=== PATIENT | male | born 1980 ===

== ENCOUNTER 2018-10-06 22:03 | Inpatient (IN) | payer OTHER ==
[2018-10-06 22:04] VITALS: BMI 27.8
--- NOTE | 2018-10-06 22:53 | ED PDOC ---
Lower Extremity Pain/Injury Time Seen by Provider: 10/06/18 22:27 Chief Complaint (Nursing): Lower Extremity Problem/Injury Chief Complaint (Provider): Left ankle pain History Per: Patient History/Exam Limitations: no limitations Additional Complaint(s): 38 y/o M with no significant PMH who presents with Left ankle pain. Pt states that he was playing soccer when he kicked the ball and turned and heard a pop then felt a kick in the back of his leg. He has not been able to walk on it since. Denies taking any pain meds since event. No numbness or tingling. Past Medical History Reviewed: Historical Data, Nursing Documentation, Vital Signs Vital Signs: Last Vital Signs Temp 98.9 F 10/06/18 22:04 Pulse 116 H 10/06/18 22:04 Resp 18 10/06/18 22:04 BP 135/76 10/06/18 22:04 Pulse Ox 95 10/06/18 22:04 Primary Care Provider: Procedure,Nonphys - Medical History PMH: No Chronic Diseases - Surgical History Surgical History: Tonsillectomy - Family History Family History: States: Unknown Family Hx - Immunization History Hx Tetanus Toxoid Vaccination: No Hx Influenza Vaccination: No Hx Pneumococcal Vaccination: No - Home Medications Home Medications: Ambulatory Orders Medication Instructions Recorded Ibuprofen [Motrin Tab] 800 mg PO Q6 PRN 7 Days tab 10/06/18 - Allergies Allergies/Adverse Reactions: Allergies Allergy/AdvReac Type Severity Reaction Status Date / Time No Known Allergies Allergy Verified 10/06/18 22:04 Review of Systems Musculoskeletal: Positive for: Foot Pain (ankle pain) Physical Exam - Reviewed Nursing Documentation Reviewed: Yes Vital Signs Reviewed: Yes - Physical Exam Appears: Positive for: Uncomfortable Skin: Positive for: Normal Color Extremity: Positive for: Capillary Refill (< 2 sec), Other (Left posterior ankle soft, + tenderness on palpation of posterior ankle. No ecchymosis, erythema. Mild edema. ). Negative for: Normal ROM (Decreased ROM with flexion/extension of Left ankle. Normal ROM with flexion and extension of left knee and toes. ), Calf Tenderness, Deformity Neurological/Psych: Positive for: Awake, Alert, Oriented - Laboratory Results Result Diagrams: 10/06/18 23:27 10/06/18 23:27 - ECG O2 Sat by Pulse Oximetry: 95 Medical Decision Making Medical Decision Making: CBC, CMP, PT/PTT/INR, Type and screen ordered. Toradol 30mg IV x 1 Left ankle x-ray Podiatry consult Left ankle x-ray read by me: no acute fracture. 23:35: Podiatry at bedside, placed posterior splint in plantar flexed position. 00:05: Pt to be admitted for surgery tomorrow with Dr. Marte. Case discussed with Dr. Rodriguez who accepts admission and care transferred at this time. Pre-op CXR and EKG ordered. EKG: sinus, HR 74, normal ECG. CXR read by me: no acute abnormality. Disposition - Clinical Impression Clinical Impression: Achilles tendon rupture - Patient ED Disposition Is Patient to be Admitted: Yes Counseled Patient/Family Regarding: Studies Performed, Diagnosis, Need For Followup, Rx Given - Disposition Disposition: Transfer of Care Disposition Time: 00:05 Condition: STABLE
[2018-10-06 23:31] LABS: BASO # 0.1 K/uL (0.0-0.2); BASO % 0.6 % (0.0-2.0); EOS # 0.1 K/uL (0.0-0.7); EOS % 0.5 % (0.0-4.0); HEMOGLOBIN 15.7 g/dL (12.0-18.0); LYMPH # 1.9 K/uL (1.0-4.3); LYMPH % 13.4 % (20.0-40.0); MEAN CELL VOLUME 87.2 fl (80.0-94.0); MEAN CORPUSCULAR HEMOGLOBIN 29.8 pg (27.0-31.0); MEAN CORPUSCULAR HGB CONC 34.2 g/dL (33.0-37.0); MONO # 0.8 K/uL (0.0-0.8); MONO % 5.5 % (0.0-10.0); NEUT # 11.2 K/uL (1.8-7.0); NRBC % 0.1 % (0.0-0.0); RBC 5.29 Mil/uL (4.40-5.90); RED CELL DISTRIBUTION WIDTH 13.3 % (11.5-14.5)
[2018-10-06 23:41] LABS: ALB/GLOB RATIO 1.7 (1.0-2.1); ALBUMIN 5.2 g/dL (3.5-5.0); ALT/SGPT 111 U/L (21-72); AST/SGOT 69 U/L (17-59); BLOOD UREA NITROGEN 23 mg/dl (9-20); CALCIUM 9.5 mg/dL (8.4-10.2); GFR NON-AFRICAN AMERICAN > 60
[2018-10-07 00:35] LABS: PROTHROMBIN TIME 11.8 Seconds (9.8-13.1)
--- NOTE | 2018-10-07 00:40 | CP.PCM.CON ---
History of Present Illness - History of Present Illness History of Present Illness: Consult note for attending Dr. Marte: 38 year old male patient with no PMH seen and evaluated in ED for left lower extremity injury. Patient states that while playing soccer at 9:30 pm he suddenly felt pop in the lower part of his left leg at the Achilles tendon. He states that he immediately had pain. He states that today she has the pain 8/10 on VAS scale and he sat on the ground and his friends carried him until the EMS picked him up. He states that the pain is in the back of the lower leg and sometimes shooting up. He states that the pain medication he received in the ED managed to control the pain but he develops it when he attempt to move in bed. Patient denies any tingling, or burning sensation at her left LE but he has some numbness in the back of his heel. Patient denies any recent F/N/V/C/CP or SOB. He denies any other pedal complaint at this time. PMH: None PSH: Tonsillectomy. Allergies: Seasonal allergy. Social Hx: Denies smoking, EtOH use or illicit drug use. Review of Systems - Review of Systems Review of Systems: As per HPI - Constitutional Constitutional: As Per HPI Past Patient History - Past Social History Smoking Status: Never Smoked - PSYCHIATRIC Hx Psychophysiologic Disorder: No Hx Substance Use: No - SURGICAL HISTORY Hx Tonsillectomy: Yes - ANESTHESIA Hx Anesthesia: Yes Hx Anesthesia Reactions: No Hx Malignant Hyperthermia: No Meds Home Medications: Home Medication List Medication Instructions Recorded Confirmed Type Ibuprofen [Motrin Tab] 800 mg PO Q6 PRN 7 Days tab 10/06/18 Rx Allergies/Adverse Reactions: Allergies Allergy/AdvReac Type Severity Reaction Status Date / Time No Known Allergies Allergy Verified 10/06/18 22:04 Physical Exam - Constitutional Appears: Well, Non-toxic, No Acute Distress - Head Exam Head Exam: ATRAUMATIC, NORMOCEPHALIC - Extremities Exam Additional comments: Left lower extremity focused exam: Vascular: DP/PT 2/4, Cap refill < 3 seconds, Temp gradient warm to cool from proximal to distal, No edema appreciated to the leg or foot. Neuro: Gross and protective sensation intact. Derm: No open lesions . no clinical signs of infection appreciated. MSK: Pain with palpation of Lower 2/3 of Achilles tendon, Palpable gap noted at the lower 1/3 of the Achilles tendon. Almaguer test positive. MMT 5/5 to all groups except the plantar flexors 2/5. - Neurological Exam Neurological exam: Alert, Oriented x3 - Psychiatric Exam Psychiatric exam: Normal Affect, Normal Mood Results - Vital Signs Recent Vital Signs: Last Vital Signs Temp 98.9 F 10/06/18 22:04 Pulse 116 H 10/06/18 22:04 Resp 18 10/06/18 22:04 BP 135/76 10/06/18 22:04 Pulse Ox 95 10/07/18 00:16 - Labs Result Diagrams: 10/06/18 23:27 10/06/18 23:27 Labs: Laboratory Results - last 24 hr 10/06/18 10/06/18 10/06/18 23:27 23:27 23:27 WBC 14.0 H RBC 5.29 Hgb 15.7 Hct 46.1 MCV 87.2 MCH 29.8 MCHC 34.2 RDW 13.3 Plt Count 353 MPV 9.0 Neut % (Auto) 80.0 H Lymph % (Auto) 13.4 L [place] % (Auto) 5.5 Eos % (Auto) 0.5 Baso % (Auto) 0.6 Neut # (Auto) 11.2 H Lymph # (Auto) 1.9 [place] # (Auto) 0.8 Eos # (Auto) 0.1 Baso # (Auto) 0.1 Sodium 141 Potassium 3.8 Chloride 101 Carbon Dioxide 28 Anion Gap 16 BUN 23 H Creatinine 1.3 Est GFR ( Amer) > 60 Est GFR (Non-Af Amer) > 60 Random Glucose 83 Calcium 9.5 Total Bilirubin 0.6 AST 69 H ALT 111 H Alkaline Phosphatase 80 Total Protein 8.3 H Albumin 5.2 H Globulin 3.1 Albumin/Globulin Ratio 1.7 BBK History Checked No verified bt Assessment & Plan - Assessment and Plan (Free Text) Assessment: 38 year old male patient with no PMH seen and evaluated in ED for left Achilles tendon rupture. Plan: Patient seen and evaluated Discussed with attending, Dr Marte. X-ray left ankle reviewed: Disrupted Kager's triangle Discussed X-ray results with the patient. Ordered L ankle MRI. Applied posterior splint in plantar flexed position to the LLE. Patient instructed to keep the splint C/D/I Patient instructed to stay NWB to the LLE and to ambulate using crutches. Patient educated RICE protocol and instructed to do it. Patient expressed verbal understanding. Discussed with the patient that he needs surgery to repair his Achilles tendon. Patient expressed verbal understanding. Patient admitted to the hospital for Achilles tendon repair surgery tomorrow morning 8:30 am. Keep the patient NPO past midnight. Please obtain medical clearance. Patient to be followed up while in house. Thank you for the consult - Date & Time Date: 10/07/18 Time: 00:41
[2018-10-07 02:04] LABS: URINE BILIRUBIN NEGATIVE (NEGATIVE); URINE BLOOD NEGATIVE (NEGATIVE); URINE CLARITY CLEAR (Clear); URINE COLOR YELLOW (YELLOW); URINE GLUCOSE (UA) NEG (NEGATIVE); URINE LEUKOCYTE ESTERASE NEG Leu/uL (Negative); URINE PROTEIN 30 mg/dL (NEGATIVE); URINE UROBILINOGEN 0.2-1.0 mg/dL (0.2-1.0)
[2018-10-07] MEDS ORDERED: Oxycodone/Acetaminophen 5/325 mg Tab PO PRN ×3 (02:09→11:37)
[2018-10-07] MEDS ORDERED: HYDROmorphone 1 mg/ml ISec IVP PRN (02:09)
[2018-10-07] MEDS ORDERED: Lactated Ringer's 1,000 ML IV SCH ×2 (02:15→12:00)
[2018-10-07] MEDS ORDERED: Bupivacaine 0.5% Inj(30mL) ONE (07:54)
[2018-10-07] MEDS ORDERED: Lidocaine 1% Inj (20ml) ONE (07:54)
[2018-10-07] MEDS ORDERED: Bacitracin Ointment 30 GM TUBE ONE (07:54)
[2018-10-07] MEDS ORDERED: EPINEPHrine 1 mg/ml (1:1000) Inj ONE (07:55)
[2018-10-07] MEDS ORDERED: Midazolam 2 MG/2 ML VIAL ONE (07:59)
[2018-10-07] MEDS ORDERED: Propofol 10 mg/ml Inj (20 ML) ONE (07:59)
[2018-10-07] MEDS ORDERED: Lidocaine 2% MPF (5 ml) Inj ONE (08:00)
[2018-10-07] MEDS ORDERED: Rocuronium 10 mg/ml (5 ml) ONE ×2 (08:01→09:14)
[2018-10-07] MEDS ORDERED: Lactated Ringer's 1,000 ML IV ONE (08:15)
--- NOTE | 2018-10-07 08:23 | CP.PCM.PN ---
Subjective - Date & Time of Evaluation Date of Evaluation: 10/07/18 Time of Evaluation: 08:16 - Subjective Subjective: Progress note for attending Dr. Marte: 38 year old male patient seen and evaluated preoperatively for Left Achilles tendon rupture repair. Patient states that while playing soccer at 9:30 pm yesterday he suddenly felt pop in the lower part of his left leg at the Achilles tendon. He states that he immediately had pain. He states that today she has the pain 8/10 on VAS scale and he sat on the ground and his friends carried him unti l the EMS picked him up. He states that the pain is in the back of the lower leg and sometimes shooting up. Patient denies any tingling, or burning sensation at her left LE but he has some numbness in the back of his heel. Patient denies any recent F/N/V/C/CP or SOB. He denies any other pedal complaint at this time. Patient is aware with his surgery today. NPO status confirmed. Objective - Vital Signs/Intake and Output Vital Signs (last 24 hours): Temp Pulse Resp BP Pulse Ox 98.5 F 75 20 111/69 96 10/07/18 07:36 10/07/18 07:36 10/07/18 07:36 10/07/18 07:36 10/07/18 07:36 - Medications Medications: Current Medications Hydromorphone HCl (Dilaudid) 1 mg IVP Q4 PRN PRN Reason: Pain, moderate (4-7) Lactated Ringer's (Lactated Ringer's) 1,000 mls @ 80 mls/hr IV .[id number] [facility] Stop: 10/09/18 02:16 Last Admin: 10/07/18 02:23 Dose: 80 mls/hr Oxycodone/Acetaminophen (Percocet 5/325 Mg Tab) 1 tab PO Q6 PRN PRN Reason: Pain, Mild (1-3) Stop: 10/10/18 02:10 - Labs Labs: 10/06/18 23:27 10/06/18 23:27 PT 11.8 Seconds (9.8-13.1) 10/07/18 00:12 INR 1.0 10/07/18 00:12 APTT 32.0 Seconds (25.6-37.1) 10/07/18 00:12 - Constitutional Appears: Well, Non-toxic, No Acute Distress - Head Exam Head Exam: ATRAUMATIC, NORMOCEPHALIC - Extremities Exam Additional comments: Left lower extremity focused exam: Posterior splint was C/D/I, Posterior splint left intact. Vascular: Cap refill < 3 seconds. Neuro: Gross and protective sensation intact. MSK: Patient can perform passive ROM with his toe. - Neurological Exam Neurological Exam: Alert, Awake, Oriented x3 - Psychiatric Exam Psychiatric exam: Normal Affect, Normal Mood Assessment and Plan - Assessment and Plan (Free Text) Assessment: 38 year old male patient seen and evaluated preoperatively for Left Achilles tendon rupture repair. Plan: Patient seen and evaluated Discussed with attending, Dr Marte. Posterior splint left C/D/I Patient NPO status was confirmed. All pre-op testing and clearance in chart. Patient was explained procedure and post-operative course. All Patient's questions were answered to satisfaction. No guarantees were made. Patient understands all risks, benefits and complications of procedure. Patient instructed to stay NWB to the LLE and to ambulate using crutches postoperative. Patient educated RICE protocol and instructed to contine it postoperative. Patient expressed verbal understanding. Patient to be followed up while in house. Patient will follow-up with Dr. Marte within 1 week of surgery.
--- NOTE | 2018-10-07 08:32 | RAD ---
Date of service: 10/07/2018 HISTORY: shortness of breath, cough COMPARISON: No prior. TECHNIQUE: Chest PA and lateral views FINDINGS: LUNGS: No active pulmonary disease. PLEURA: No significant pleural effusion identified. No pneumothorax apparent. CARDIOVASCULAR: No aortic atherosclerotic calcification present. Normal cardiac size. No pulmonary vascular congestion. OSSEOUS STRUCTURES: No significant abnormalities. VISUALIZED UPPER ABDOMEN: Normal. OTHER FINDINGS: None. IMPRESSION: No acute cardiopulmonary disease appreciated.
--- NOTE | 2018-10-07 08:48 | CARD ---
APPROVED REPORT Date of service: 10/07/2018 EKG Measurement Heart [id number] [place] [id number] [id number] <Conclusion> Normal sinus rhythm Normal ECG
--- NOTE | 2018-10-07 08:57 | RAD ---
Date of service: 10/06/2018 PROCEDURE: Left Ankle Radiographs. HISTORY: possible Achilles tendon rupture COMPARISON: None available. TECHNIQUE: 3 views obtained. FINDINGS: BONES: No acute fracture or destructive bony lesion identified. JOINTS: Normal. No osteoarthritis. Ankle mortise maintained. Talar dome intact SOFT TISSUES: Normal. OTHER FINDINGS: None. IMPRESSION: Unremarkable left ankle radiographs.
[2018-10-07] MEDS ORDERED: Bupivacaine HCl/Epi 0.5% 1:20000 30 ML SOL IJ ONE (10:53)
--- NOTE | 2018-10-07 11:33 | PCM.SURG1 ---
Surgeon's Initial Post Op Note - Surgeon's Notes Surgeon: Dr. Tereso Marte III., MD Coil Tier: Dr. Le Spencer. DPM/PGY1 Type of Anesthesia: General Endo Anesthesia Administered By: Dr Maury Faith Pre-Operative Diagnosis: Acute left Achilles tendon rupture. Operative Findings: SEe Dictation Post-Operative Diagnosis: Acute left Achilles tendon rupture. Operation Performed: 1- Primary repair of the left Achilles tendon. 2- Achilles tendon augmentation using plantaris tendon autograft. 3- Internal fixation using speed bridge, Tunneling technique. 4- APplication of short leg cast. Specimen/Specimens Removed: Ruptured Achilles tendon. Estimated Blood Loss: EBL {In ML}: 5 Blood Products Given: N/A Drains Used: No Drains Post-Op Condition: Good Date of Surgery/Procedure: 10/07/18 Time of Surgery/Procedure: 11:34
[2018-10-07] MEDS ORDERED: HYDROmorphone 0.5 mg/0.5 ml ISec IVP PRN (12:00)
--- NOTE | 2018-10-07 12:05 | PCM.ANESB2 ---
Popliteal Nerve Block - Popliteal Nerve Block Date of Procedure: 10/07/18 Anesthesiologist: Jerson Faith Pre-Procedure Diagnosis: left achilles tendon rupture Post-Procedure Diagnosis: repair of left achilles tendon Procedure Performed: Popliteal Nerve Block Left - Procedure Popliteal Nerve Block: This procedure was explained to the patient that it is for post-operative pain management. Consent was obtained after a thorough discussion with the patient regarding the benefits and possible complications of local anesthetic block of the sciatic nerve at the popliteal level. The patient was brought to the operating room and standard monitors are applied. Time-out was held with the circulating nurse to confirm the correct surgery and the appropriate block. After applying oxygen by nasal cannula and administering IV Sedation, patient's operative leg was gently raised and supported and the groove in between the biceps femoris and vastus lateralis muscles was carefully palpated. The skin approximately 8cm above the popliteal crease was then marked. The ultrasound transducer was then applied to the posterior thigh approximately 8cm above the popliteal crease in the transverse plane and the sciatic nerve before its division was visualized lateral to the popliteal artery and in between the bicep femoris and semimembranosus/semitendinosus muscles. After identification, the lateral portion of the thigh was prepped with Betadine solution three times and Lidocaine 1% was injected subcutaneously for topical anesthesia. At this point, a # 21 gauge Stimuplex insulated 4 inch needle was inserted into pre-marked area and advanced in a perpendicular direction. The needle was inserted above the ultrasound transducer in-plane towards the sciatic nerve in a [id number] direction. Needle advancement was performed carefully under direct ultrasound visualization. Nerve stimulator was used and dorsiflexion of the _left____ foot was elicited at a current of _0.3____ MA. After repeated negative aspiration, __5___cc of _0.5____ % _bupiv was injected and this was flowed with __25____ cc of _0.5 % __bupiv . Under ultrasound guidance the local anesthetics were observed surrounding sciatic nerve . The needle was removed intact and sterile dressing was applied. The patient tolerated the popliteal nerve block well with stable vital signs and was subsequently prepared for the surgery.
[2018-10-07 16:07] VITALS: BP 139/81; PULSE 83; RESP 18; TEMP 98; O2SAT 98
--- NOTE | 2018-10-07 19:52 | CP.PCM.HP ---
History of Present Illness - History of Present Illness History of Present Illness: This is a 38 y/o male admitted for Achilles tendon rupture which he sustained while playing soccer yesterday. He was seen by Podiatry and scheduled for surgery with Dr Marte. Patient has no significant medical history. Present on Admission - Present on Admission Any Indicators Present on Admission: No History of DVT/PE: No History of Uncontrolled Diabetes: No Urinary Catheter: No Decubitus Ulcer Present: No Past Patient History - Past Medical History & Family History Past Medical History?: No - Past Social History Smoking Status: Never Smoked - CARDIAC Hx Cardiac Disorders: No - PULMONARY Hx Respiratory Disorders: No - NEUROLOGICAL Hx Neurological Disorder: No - HEENT Hx HEENT Problems: No - RENAL Hx Chronic Kidney Disease: No - ENDOCRINE/METABOLIC Hx Endocrine Disorders: No - HEMATOLOGICAL/ONCOLOGICAL Hx Blood Disorders: No Hx AIDS: No Hx Human Immunodeficiency Virus (HIV): No - INTEGUMENTARY Hx Dermatological Problems: No - MUSCULOSKELETAL/RHEUMATOLOGICAL Hx Musculoskeletal Disorders: No Hx Falls: No - GASTROINTESTINAL Hx Gastrointestinal Disorders: No - GENITOURINARY/GYNECOLOGICAL Hx Genitourinary Disorders: No - PSYCHIATRIC Hx Psychophysiologic Disorder: No Hx Substance Use: No - SURGICAL HISTORY Hx Tonsillectomy: Yes (2014) - ANESTHESIA Hx Anesthesia: Yes Hx Anesthesia Reactions: No Hx Malignant Hyperthermia: No Has any member of the family had a problem w/ anesthesia?: No Meds Home Medications: Home Medication List Medication Instructions Recorded Confirmed Type Ibuprofen [Motrin Tab] 800 mg PO Q6 PRN 7 Days tab 10/06/18 Rx Allergies/Adverse Reactions: Allergies Allergy/AdvReac Type Severity Reaction Status Date / Time No Known Allergies Allergy Verified 10/06/18 22:04 Physical Exam - Head Exam Head Exam: NORMAL INSPECTION - Eye Exam Eye Exam: Normal appearance - ENT Exam ENT Exam: Mucous Membranes Moist - Respiratory Exam Respiratory Exam: Clear to Auscultation Bilateral - Cardiovascular Exam Cardiovascular Exam: REGULAR RHYTHM - GI/Abdominal Exam GI & Abdominal Exam: Normal Bowel Sounds - Neurological Exam Neurological exam: CN II-XII Intact, Oriented x3 Results - Vital Signs Recent Vital Signs: Last Vital Signs Temp 98 F 10/07/18 16:07 Pulse 83 10/07/18 16:07 Resp 18 10/07/18 16:07 BP 139/81 10/07/18 16:07 Pulse Ox 98 10/07/18 16:07 - Labs Result Diagrams: 10/06/18 23:27 10/06/18 23:27 Labs: Laboratory Results - last 24 hr 10/06/18 10/06/18 10/06/18 23:27 23:27 23:27 WBC 14.0 H RBC 5.29 Hgb 15.7 Hct 46.1 MCV 87.2 MCH 29.8 MCHC 34.2 RDW 13.3 Plt Count 353 MPV 9.0 Neut % (Auto) 80.0 H Lymph % (Auto) 13.4 L [place] % (Auto) 5.5 Eos % (Auto) 0.5 Baso % (Auto) 0.6 Neut # (Auto) 11.2 H Lymph # (Auto) 1.9 [place] # (Auto) 0.8 Eos # (Auto) 0.1 Baso # (Auto) 0.1 PT INR APTT Sodium 141 Potassium 3.8 Chloride 101 Carbon Dioxide 28 Anion Gap 16 BUN 23 H Creatinine 1.3 Est GFR ( Amer) > 60 Est GFR (Non-Af Amer) > 60 Random Glucose 83 Calcium 9.5 Total Bilirubin 0.6 AST 69 H ALT 111 H Alkaline Phosphatase 80 Total Protein 8.3 H Albumin 5.2 H Globulin 3.1 Albumin/Globulin Ratio 1.7 Urine Color Urine Clarity Urine pH Ur Specific [place] Urine Protein Urine Glucose (UA) Urine Ketones Urine Blood Urine Nitrate Urine Bilirubin Urine Urobilinogen Ur Leukocyte Esterase Urine RBC (Auto) Urine Microscopic WBC Blood Type O POSITIVE Blood Type Confirm Antibody Screen Negative BBK History Checked No verified bt 10/07/18 10/07/18 10/07/18 00:12 00:15 01:30 WBC RBC Hgb Hct MCV MCH MCHC RDW Plt Count MPV Neut % (Auto) Lymph % (Auto) [place] % (Auto) Eos % (Auto) Baso % (Auto) Neut # (Auto) Lymph # (Auto) [place] # (Auto) Eos # (Auto) Baso # (Auto) PT 11.8 INR 1.0 APTT 32.0 Sodium Potassium Chloride Carbon Dioxide Anion Gap BUN Creatinine Est GFR ( Amer) Est GFR (Non-Af Amer) Random Glucose Calcium Total Bilirubin AST ALT Alkaline Phosphatase Total Protein Albumin Globulin Albumin/Globulin Ratio Urine Color Yellow Urine Clarity Clear Urine pH 6.0 Ur Specific [place] 1.026 Urine Protein 30 Urine Glucose (UA) Neg Urine Ketones Trace Urine Blood Negative Urine Nitrate Negative Urine Bilirubin Negative Urine Urobilinogen 0.2-1.0 Ur Leukocyte Esterase Neg Urine RBC (Auto) 14 H Urine Microscopic WBC 1 Blood Type Blood Type Confirm O POSITIVE Antibody Screen BBK History Checked Assessment & Plan (1) Achilles tendon rupture Status: Acute - Assessment and Plan (Free Text) Plan: pain meds follow up post op. phys therapy post op. medically stable
--- NOTE | 2018-10-08 00:31 | OP ---
PROCEDURE DATE: 10/07/2018 OPERATIVE INDICATION: Mahad Claros is a 38-year-old gentleman who injured his left Achilles tendon, playing soccer last evening. The patient presented to [facility]. The patient was evaluated in the emergency room by Dr. Spencer and admitted. The patient had a clear defect in the Achilles tendon, had pain, and inability to bear weight on the left lower extremity. 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 The patient presents and wishes operative repair as he was conversant with the nature of the injury from other athletes that he has played soccer with. Pros, cons, risks, and benefits of surgical approach were discussed, concept of re-rupture was discussed. The patient is an avid workout enthusiast and may be taking supplements, which may have affected the strength of the Achilles. In fact, on surgical exposure, the texture of the tendon and the strength of the tendon speak for the fact that the patient has probably taken steroidal supplementation at some point. Possibility of mechanical failure, infection, thromboembolic disease, secondary or tertiary surgery was discussed. The patient wishes the operative approach to be accomplished as an emergency in fact, is appreciative of the fact that such was accomplished. PREOPERATIVE DIAGNOSIS: Acute left mid substance Achilles tendon rupture. OPERATIVE PROCEDURE: 1. Primary repair, left Achilles tendon. 2. Achilles tendon augmentation using plantaris tendon autograft. 3. Tenosynovectomy and excision of paratenon of the Achilles tendon. 4. Internal fixation of the Achilles tendon repair using Arthrex SpeedBridge tunneling technique into the calcaneus with anchors. 5. Application of short-leg cast. SURGEON: Tereso Marte MD FOAM TANK LAMINATOR: SAGAR SPENCER DPM PGY1 TYPE OF ANESTHESIA: General endotracheal anesthesia. ANESTHESIA ADMINISTERED BY: Mahendra Faith DO OPERATIVE FINDINGS: 1. Mid tendon rupture of the left Achilles tendon. 2. Hematoma and engorgement of the synovium with hematoma and inflammation therefrom. 3. The tendon was found to be shredded, it was of poor strength again suggesting the possibility of systemic performance-enhancing drugs with steroidal supplementations. ESTIMATED BLOOD LOSS: 5 mL. BLOOD PRODUCTS GIVEN: None. DRAINS: No drains. COMPLICATIONS: No complications. POSTOPERATIVE CONDITION: Stable. SPECIMENS REMOVED: 1. Ruptured Achilles tendon fragments. 2. Tenosynovium. DESCRIPTION OF PROCEDURE: After having obtained informed consent in the above fashion, after thoroughly discussing the pros, cons, risks and benefits of the surgical approach, the possibility of mechanical failure, infection, thromboembolic disease, possibility of secondary or tertiary surgery was discussed. After the satisfactory induction of the anesthetic, the patient identified as Mahad Claros. He was placed in the prone position. Great care was taken to provide the checklist of the patient in a prone position. The shoulders were below the level of the horizontal plane. The ulnar nerves were protected at the elbow. The elbow is not acutely flexed, but is somewhat extended to approximately 95 degrees. The towels were placed from the anterior-superior iliac spine to the acromioclavicular joints. The neck was well padded. At this point in time, after having obtained informed consent, after having positioned the patient, after having identified the side and site and procedure, and a critical pause/time-out, after the satisfactory induction of general endotracheal anesthesia by Dr. Mahendra Faith, the left lower extremity with the patient in the prone position was prepped and draped in the usual fashion for lower extremity surgery. The tourniquet have been applied, but was not yet inflated. After sterilely prepping and draping, after exsanguinating the limb using a 6-inch Esmarch bandage, the tourniquet, which have been applied was inflated to 350 mmHg. The operation was performed where a 2.0 eyeglass magnification incision was described just to the medial aspect of the midline extending four fingerbreadths above the Achilles tendon rupture to approximately three fingerbreadths above the calcaneus. The skin incision was carried down through the skin and subcutaneous tissue. There was found to be an immediate evidence of hematoma in the paratenon. The paratenon was released, and at this point in time, the hematoma was evacuated. The Achilles tendon was found to be shredded at its mid substance. At this point in time, taking great care, the Achilles tendon was evacuated. Thorough irrigation was accomplished. To protect the skin, stay sutures were applied. At this point in time, a careful partial tenosynovectomy was accomplished. The frayed ends of the Achilles tendon were freshened using a #10 blade and this was sent for specimen. The paratenon and tenosynovium were sent for specimen as well. At this point in time, the plantaris tendon was identified. A tenosynovectomy of the plantaris tendon was accomplished as well. The plantaris insertion was identified and carefully released. The tendon was handled atraumatically and the tendon was resected proximally to give enough coverage to the Achilles tendon. This having been accomplished, the plantaris tendon was placed in saline. At this point in time, using a modified Krackow suture, the proximal aspect of the Achilles tendon was gathered and the two ends were brought out distally. With the ankle in equinus, the Krackow technique was continued through the distal fragment and the two ends were brought out and secured with a hemostat. At this point in time, a peripheral suture around the tear was accomplished with FiberWire and Vicryl just to hold the integrity of the tendon through the remainder of the procedure. This having been accomplished, a secondary core suture was accomplished using the #2 FiberTape using wide Berry needles in a modified Livia fashion. This having been accomplished in the distal aspect, the modified Livia was removed from the distal aspect of the tendon as well. This having been accomplished, the wound was thoroughly irrigated, and at this point in time, the plantaris tendon, which had been imbibing the saline solution was taken out and the tendon was carefully spread and developed and spread with the tenotomy scissors. This having been accomplished, each of the ends was held with hemostats and the main body medially and laterally was held with hemostats as well. This was brought to the operating table. At this point in time, two stab wounds were placed, at the posterior aspect of the calcaneus with the bridge between them at approximately 2.5 cm. This having been accomplished, the tunneling was carried out into the wound, and at this point in time, the attention was turned to the autograft supplementation of the repair. The plantaris tendon autograft was placed around the repair and it was secured with both interrupted and running 2-0 Vicryl suture. This having been accomplished, the fixation of the autograft was found to be excellent. The gliding surface of the tendon was found to be intact and smoothed, and at this point in time, the drilling was accomplished through the cuts and tapping was accomplished. At this point in time, the anchors are loaded and introduced and with the ankle in equinus, the SwiveLock anchors were introduced first medially. The anchor was introduced, it was tensioned. The SwiveLock was introduced into the calcaneus and the SwiveLock was placed laterally as well in the same fashion and the tensioning was found to be excellent. Tension of the Achilles tendon was found to be excellent. Photographs were obtained and the construct was found to be excellent. The sutures were clipped. The tension of the tendon was found to be excellent. The wound was thoroughly irrigated. Closures in layers with interrupted Vicryl and 2-0 Quill plastic closure with Steri-Strips. The stab incisions were closed with Vicryl and nylon. A very well-padded Serg López compression dressing and short leg cast was placed with the ankle in equinus. The patient was transferred from the operating table to stretcher having tolerated the procedure well. Tereso Marte MD
== END 2018-10-07 15:30 | disposition home or self-care (01) | DRG 502 ==
LOC: H.ER 22:03 → H.ERHOLD 10-07 00:07 → H.MEDSURG1 10-07 01:18
PROVIDERS: ADMIT Family Medicine; ATTEND Family Medicine
PROC: 3E0T3BZ Introduction of Anesthetic Agent into Peripheral Nerves and Plexi, Percutaneous Approach (ICD-10-PCS; 2018-10-07)
PROC: 0LUP07Z Supplement Left Lower Leg Tendon with Autologous Tissue Substitute, Open Approach (ICD-10-PCS; principal; 2018-10-07 08:00)
PROC: 0LBP0ZZ Excision of Left Lower Leg Tendon, Open Approach (ICD-10-PCS; 2018-10-07 08:00)
DX: S86.012A Strain of left Achilles tendon, initial encounter (principal); Y93.66 Activity, soccer; Y92.322 Soccer field as the place of occurrence of the external cause